=== PATIENT | male | born 1985 | race Caucasian/White ===

== ENCOUNTER 2018-07-01 10:58 | Day surgery (SDC) | payer MEDICAID ==
[2018-07-01] MEDS: Sodium Chloride 0.9% 1,000 ML IV SCH (11:45)
[2018-07-01] MEDS ORDERED: Propofol 200 MG/20 ML SDV ONE (13:40)
[2018-07-01 15:39] VITALS: BP 127/84
--- NOTE | 2018-07-01 15:40 | OR ---
DATE OF OPERATION: 07/01/2018 PREOPERATIVE DIAGNOSIS: Family history of colon cancer. POSTOPERATIVE DIAGNOSIS: Family history of colon cancer. PROCEDURE: Colonoscopy. ANESTHESIA: MAC. ESTIMATED BLOOD LOSS: None. COMPLICATIONS: None. INDICATION FOR THE PROCEDURE: The patient is a 32-year-old male with a family history of colon cancer. His father was diagnosed at a young age. The patient denies any change in bowel habits and has otherwise been doing well. He is here today for screening colonoscopy. DESCRIPTION OF PROCEDURE: Informed consent was obtained from the patient. The patient was taken to the operating room and placed on the table in left lateral decubitus position. Monitored anesthesia care was administered. Digital rectal exam was performed and was normal. Colonoscope then advanced through the anus and directed toward the cecum. Cecum was reached and identified by appendiceal orifice and ileocecal valve. The colonoscope then slowly withdrawn. No masses. No polyps. No areas of ischemia or inflammation. No AV malformations or diverticula noted. Colonoscope was slowly withdrawn and was retroflexed in the rectum. Rectum also was normal. Colonoscope then withdrawn. He was brought to recovery room in good condition and tolerated the procedure well. FINDINGS: Normal colon. RECOMMENDATIONS: Would recommend repeat screening colonoscopy in 5 years due to family history. MALINA/YASMIN /[id number]
== END 2018-07-01 14:30 | disposition home or self-care (01) ==
LOC: LB.SDS 10:58
PROVIDERS: ATTEND Surgery
DX: Z12.11 Encounter for screening for malignant neoplasm of colon (principal); Z80.0 Family history of malignant neoplasm of digestive organs
CPT/HCPCS: G0105; J2704; J7030

== ENCOUNTER 2024-08-16 14:40 | Emergency (ER) | payer MEDICAID | END 2024-08-16 15:15 | disposition home or self-care (01) | LOC: LB.ED 14:40 | DX: T16.2XXA Foreign body in left ear, initial encounter (principal); Z79.899 Other long term (current) drug therapy; E78.00 Pure hypercholesterolemia, unspecified; W44.8XXA Other foreign body entering into or through a natural orifice, initial encounter; Y93.89 Activity, other specified | CPT/HCPCS: 99282; 99283 ==